=== PATIENT | female | born 1955 | race Caucasian/White ===

== ENCOUNTER 2017-06-15 15:21 | Emergency (ER) | payer MEDICARE, OTHER ==
[~2017-06-15] VITALS: Ht 167.6 cm; Wt 59.1 kg
[~2017-06-15 15:21] MED LIST: CARI350T29 PO; CLON1TAB3 PO; DIVA250T4 PO; DOCU100C PO; HYDR-762 PO; HYDR2TAB36 PO; LEVE500T11 PO; LYR75 PO; NIT4 SL; QUET200T PO; SIMV20TA2 PO; TIOT18CA IH; VALS160T20 PO
[2017-06-15 15:50] VITALS: Ht 167.6 cm; Wt 59.1 kg
--- NOTE | 2017-06-15 16:19 | ERD ---
ER Documentation Chief Complaint Date/Time DATE: 06/15/17 TIME: 16:15 Chief Complaint HPI Patient is a 61-year-old female who was found on the ground with contusion to her left forehead by her . She reports that she walks with a cane and has problems with equilibrium, and has had frequent falls. The patient also takes Viburnum and Soma for low back pain. She denies taking other medications or increased dosages today. Patient cannot recall her fall. She complains of right hip pain and head pain. Patient denies chest pain, shortness of breath, focal weakness or numbness. Last tetanus was less than 10 years ago. ROS All systems reviewed and are negative except as per history of present illness. Medications Home Meds Reported Medications Divalproex Sodium* (Divalproex ER*) 500 Mg Tab.er.24h, 500 MG PO BID, #60 TAB.SA 06/15/17 Carisoprodol* (Carisoprodol*) 350 Mg Tablet, 350 MG PO Q8 Y for MUSCLE SPASMS, TAB 06/15/17 Hydrocodone Bit-Acetaminophen* (Viburnum*) 10-325 Mg Tablet, 1 TAB PO BID Y for PAIN, TAB 05/17/16 Quetiapine Fumarate* (Seroquel*) 200 Mg Tablet, 200 MG PO HS, #30 TAB 05/17/16 Clonazepam* (Clonazepam*) 1 Mg Tablet, 1 MG PO BID Y for ANXIETY, TAB 05/17/16 Tiotropium [place]* (Spiriva*) 18 Mcg Cap.w.dev, 1 INH IH DAILY, EA 07/25/15 Levetiracetam* (Levetiracetam XR*) 500 Mg Tab.er.24h, 500 MG PO QID, TAB 05/24/14 Pregabalin* (Lyrica*) 75 Mg Capsule, 75 MG PO BID, CAP 05/24/14 Discontinued Reported Medications Hydromorphone Hcl* (Dilaudid*) 2 Mg Tablet, 2 MG PO Q8 Y for BREAKTHROUGH PAIN, TAB 05/17/16 Nitroglycerin* (Nitrostat*) 0.4 Mg Tab.subl, 0.4 MG SL Q5MIN Y for CHEST PAIN, BOTTLE 05/17/16 Carisoprodol* (Carisoprodol*) 350 Mg Tablet, 350 MG PO BID Y for MUSCLE SPASMS, TAB 05/17/16 Valsartan* (Diovan*) 160 Mg Tablet, 160 MG PO BID, TAB 05/17/16 Divalproex Sodium* (Depakote ER*) 250 Mg Tabsr, 500 MG PO BID, #30 TAB.SA 05/17/16 Simvastatin (Simvastatin) 20 Mg Tablet, 20 MG PO HS, TAB 05/24/14 Docusate Sodium (Doc-Q-Lace) 100 Mg Capsule, 200 MG PO DAILY 05/24/14 Allergies Allergies: Coded Allergies: Penicillins (Verified Allergy, Mild, 06/15/17) atenolol (Verified Allergy, Mild, HIVES, 06/15/17) iodine (Verified Allergy, Mild, SWELLING, 06/15/17) ketorolac (Verified Allergy, Mild, HIVES, 06/15/17) ketorolac tromethamine (Verified Allergy, Mild, CAN'T REMEMBER, 06/15/17) nalbuphine (Verified Allergy, Mild, 06/15/17) sumatriptan (Verified Allergy, Mild, SEIZURE, 06/15/17) sumatriptan succinate (Verified Allergy, Mild, 06/15/17) topiramate (Verified Allergy, Mild, 06/15/17) latex (Verified Allergy, Unknown, 06/15/17) Uncoded Allergies: PLASTIC TAPE (Allergy, Mild, 04/21/11) PMhx/Soc Past medical history: Disequilibrium, chronic back pain Past surgical history: Right shoulder, right hip Social history: Denies alcohol or illicit drugs. Smokes cigarettes. History of Surgery: Yes (HEART SHUNT 2006, RIGHT KNEE REPLACED, ABD SX, SKULL FX, SHOULDER FX, HYST) Anesthesia Reaction: Yes (PATIENT WOKE UP DURING SX) Hx Neurological Disorder: Yes (SEIZURES, MIGRAINES; LAST SEIZURE ONE WEEK AGO) Hx Respiratory Disorders: Yes (COPD ) Hx Cardiac Disorders: Yes (HEART SHUNT (2) 2006 R/T [place] 2006, MAJOR [place] AT 36 YEARS OLD) Hx Psychiatric Problems: Yes Hx Miscellaneous Medical Probl: Yes (Irritible bowel syndrome, right knee surgery, ulcers,acid reflux) Hx Alcohol Use: No (NOT SINCE SHE WAS 22) Hx Substance Use: No Hx Tobacco Use: Yes FmHx Family History: No coronary disease, No diabetes Physical Exam Vitals Vital Signs Date Time Temp Pulse Resp B/P Pulse Ox O2 Delivery O2 Flow Rate FiO2 06/15/17 18:56 63 18 149/72 100 Room Air 06/15/17 15:50 67 14 105/78 100 Physical Exam Const: Drowsy, arousable to gentle stimulation, no acute distress Head: Left frontal contusion with small abrasion Eyes: Normal Conjunctiva, no pallor, no icterus. 2 mm pupils bilaterally ENT: Normal External Ears, Nose and Mouth. Poor dentition Neck: Full range of motion. No midline tenderness Resp: Clear to auscultation bilaterally, no wheezes, no rales Cardio: Regular rate and rhythm, no murmurs Abd: Soft, non tender, non distended. No rebound or guarding Skin: No petechiae or rashes Back: No midline or flank tenderness Ext: No cyanosis, or edema, pain with ranging of right hip, no deformity to extremities. Neur: Awake and alert, cranial nerves II through XII intact bilaterally, strength and sensation full in 4 extremities Psych: Normal Mood and Affect Result Diagram: 06/15/17 1615 06/15/17 1615 Results 24 hrs Laboratory Tests Test 06/15/17 16:15 06/15/17 18:30 06/15/17 18:51 White Blood Count 3.510^3/ul Red Blood Count 4.0410^6/ul Hemoglobin 13.6g/dl Hematocrit 40.3% Mean Corpuscular Volume 99.8fl Mean Corpuscular Hemoglobin 33.7pg Mean Corpuscular Hemoglobin Concent 33.7g/dl Red Cell Distribution Width 12.7% Platelet Count 59513^3/UL Mean Platelet Volume 10.0fl Neutrophils % 22.0% Lymphocytes % 71.0% Monocytes % 7.0% Neutrophils # 0.810^3/ul Lymphocytes # 2.510^3/ul Monocytes # 0.210^3/ul Platelet Estimate PLT APPEAR ADEQUATE Prothrombin Time 12.3Sec Prothrombin Time Ratio 1.0 INR International Normalized Ratio 0.91 Sodium Level 143mmol/L Potassium Level 4.2mmol/L Chloride Level 102mmol/L Carbon Dioxide Level 29mmol/L Anion Gap 16 Blood Urea Nitrogen 12mg/dl Creatinine 0.69mg/dl Glucose Level 85mg/dl Calcium Level 9.9mg/dl Total Bilirubin 0.3mg/dl Direct Bilirubin 0.00mg/dl Indirect Bilirubin 0.3mg/dl Aspartate Amino Transf (AST/SGOT) 24IU/L Alanine Aminotransferase (ALT/SGPT) 20IU/L Alkaline Phosphatase 84IU/L Total Protein 6.5g/dl Albumin 3.7g/dl Globulin 2.80g/dl Albumin/Globulin Ratio 1.32 Urine Color YELLOW Urine Clarity CLEAR Urine pH 6.0 Urine Specific Bert[place] 1.019 Urine Ketones TRACEmg/dL Urine Nitrite NEGATIVEmg/dL Urine Bilirubin NEGATIVEmg/dL Urine Urobilinogen NEGATIVEmg/dL Urine Leukocyte Esterase 1+Maribel/ul Urine Microscopic RBC 2/HPF Urine Microscopic WBC 5/HPF Urine Bacteria FEW/HPF Urine Hemoglobin NEGATIVEmg/dL Urine Glucose NEGATIVEmg/dL Urine Total Protein NEGATIVEmg/dl Urine Opiates Screen Positive Urine Barbiturates Negative Urine Amphetamines Screen Negative Urine Benzodiazepines Screen Negative Urine Cocaine Screen Negative Urine Cannabinoids Positive Bedside Urine pH (LAB) 6.5 Bedside Urine Protein (LAB) Negative Bedside Urine Glucose (UA) Negative Bedside Urine Ketones (LAB) Trace Bedside Urine Blood Negative Bedside Urine Nitrite (LAB) Negative Bedside Urine Leukocyte Esterase (L Trace Procedures/MDM EKG read by me: Time 1618, rate 70 Rhythm: Normal sinus [place]: Normal Intervals: Normal ST-T waves: no ischemic changes Ectopy: No Q-waves: No Impression: No evidence of ischemia or arrhythmia MDM: Patient is a 61-year-old female who sustained a ground-level fall at home with trauma to forehead. She does not recall the event. She does report frequent falls due to disequilibrium that she has had for several months. CT of the head and C-spine was unremarkable. There is no other evidence of significant injury. The patient's tetanus is up-to-date. Labs, EKG, and UA are unremarkable. The patient does take narcotics and muscle relaxants, and on arrival in the ER she appeared overly sedated. She denied taking more medication than prescribed or more than she usually takes. She denied depression or suicidal ideation. During brief observation period in the ER, the patient became more alert and was at baseline according to her . The stated that he would help her ambulate at home and keep an eye on her, and that he would arrange for close follow-up with her PMD. There is no focal neurological deficit, and the patient has had similar episodes previously. Departure Diagnosis: Primary Impression: Fall Encounter type: initial encounter Qualified Code: W19.XXXA - Fall, initial encounter Additional Impressions: Scalp contusion Disequilibrium Condition: Stable BERNADETTE WESTBROOK MD Jun 15, 2017 16:18
[2017-06-15 16:23] LABS: ADD SCAN DIFF NO
[2017-06-15 16:26] LABS: ABNORMAL IP MESSAGE 1; HEMATOCRIT 40.3 % (37.0-47.0); HEMOGLOBIN 13.6 g/dl (12.0-16.0); MEAN CORPUSCULAR HEMOGLOBIN 33.7 pg (29.0-33.0); MEAN CORPUSCULAR HGB CONC 33.7 g/dl (32.0-37.0); MEAN CORPUSCULAR VOLUME 99.8 fl (82.0-101.0); PLATELET COUNT 184 10^3/UL (140-415); RED BLOOD COUNT 4.04 10^6/ul (4.20-5.40); RED CELL DISTRIBUTION WIDTH 12.7 % (11.5-14.5); WHITE BLOOD COUNT 3.5 10^3/ul (4.8-10.8)
[2017-06-15] MEDS ORDERED: CARI350T29 PO (16:37)
[2017-06-15] MEDS ORDERED: DIVA500T15 PO (16:39)
[2017-06-15 16:41] LABS: INR 0.91; PROTIME 12.3 Sec (12.2-14.2)
[2017-06-15 16:46] LABS: ALBUMIN 3.7 g/dl (3.3-4.9); ALBUMIN/GLOBULIN RATIO 1.32; BILIRUBIN,INDIRECT 0.3 mg/dl (0-1.1); BILIRUBIN,TOTAL 0.3 mg/dl (0.2-1.3); CALCIUM 9.9 mg/dl (8.4-10.2); CREATININE 0.69 mg/dl (0.44-1.00); POTASSIUM 4.2 mmol/L (3.5-5.1); TOTAL PROTEIN 6.5 g/dl (6.1-8.1)
--- NOTE | 2017-06-15 16:47 | RADRPT ---
PROCEDURE: CT brain without contrast CLINICAL INDICATION: Fall, head trauma/injury TECHNIQUE: CT of the brain without contrast performed on a multidetector CT scanner, with multiplan ar reformats. One or more of the following dose reduction techniques were used: Automated exposure control, adjustment in mA and / or kV according to patient size, use of iterative reconstructive albert hnique. CTDIvol = 44 mGy; DLP = 720 mGy-cm. COMPARISON: CT brain 05/17/2016 FINDINGS: No acute intracranial hemorrhage is identified. No extra-axial fluid collection is seen. There is no mass effect. No midline shift is identified. The ventricles and sulci are mild to moderately enlarged compatible with volume loss. There are mild areas of hypodensity in the periventricular - deep white matter which are nonspecific but suggestive of chronic small vessel ischemic changes. Raza-white differentiation is preserved. Atherosclerotic calcifications of the proximal intracranial arteries are noted. There is left frontal scalp swelling without underlying fracture identified. Calvarium and skull ba se appear intact. Mastoid air cells and imaged paranasal sinuses grossly clear. IMPRESSION: 1. Left frontal scalp swelling, without underlying fracture or evidence of acute intracranial patho logy. 2. Mild to moderate volume loss, with mild chronic small vessel ischemic changes. RPTAT: VV .Benito Cee MD, Date Time Electronically viewed and signed by .Benito Cee MD, MD on 06/15/2017 16:46 .O/
--- NOTE | 2017-06-15 17:22 | RADRPT ---
PROCEDURE: CT Cervical Spine. CLINICAL INDICATION: Neck pain status post fall TECHNIQUE: A CT of the cervical spine was performed on a multi-slice CT scanner utilizing high-res olution axial imaging from the skull base through the cervical thoracic junction. Sagittal, coronal , and multiplanar reformatted images were made. CTD I: 22.12 mGy and DLP: 429.73 mGy-cm One or more of the following dose reduction techniques were used: Automated exposure control. Adjustment of the mA and/or kV according to patient size. Use of iterative reconstruction technique. COMPARISON: None FINDINGS: There is normal cervical lordosis. There is mild dextrocurvature centered at C5 . No vertebral bod y subluxation is seen. No acute fractures are evident. The posterior elements are normally aligned . The surrounding soft tissues are normal in appearance. There are moderate osteoarthrosis of anter ior atlantoaxial joint. There are multiple small lucent lesions in the cervical spine measures up to 0.5 cm in the C4 vertebral body. C2-C3: The disk height is maintained. The central canal and bilateral neural foramina are adequate ly patent. C3-C4: The disk height is maintained. There is a small central disk protrusion and mild facet arth ropathy. The central canal and bilateral neural foramina are adequately patent. C4-C5: The disk height is maintained. There is a broad-based central disk protrusion and mild face t arthropathy. The central canal and bilateral neural foramina are adequately patent. C5-C6: There is mild disk height loss. Disk osteophyte complex, small nodules in moderate facet ar thropathy are seen at this level. The central canal and bilateral neural foramina are adequately pa tent. C6-C7: The disk height is maintained. There is mild facet arthropathy without associated central c anal or neural foraminal stenosis. C7-T1: Disk height is maintained. The central canal and bilateral neural foramina are adequately p atent. IMPRESSION: 1. No acute fracture or traumatic malalignment. 2. Mild cervical spondylosis more evident at C5-C6, as described above. 3. Indeterminate multiple scattered sub centimeter lucent lesions. Consider bone scan for further evaluation. RPTAT: HHO .Ander Del Rosario MD, MD Date Time Electronically viewed and signed by .Ander Del Rosario MD, MD on 06/15/2017 17:22 .O/
--- NOTE | 2017-06-15 17:39 | RADRPT ---
PROCEDURE: Right hip series CLINICAL INDICATION: Pain following trauma TECHNIQUE: AP and frog-leg lateral view COMPARISON: 05/17/2016 right hip series FINDINGS: No acute fractures or dislocations are noted. The patient is status post right total hip replacemen t since the prior examination with intact hardware. Mild generalized osteopenia is present. The so ft tissues are normal. IMPRESSION: 1. Interval status post right total hip replacement with intact hardware and gross anatomic alignme nt. 2. No acute fractures or dislocations. 3. Mild generalized osteopenia RPTAT: HDC .Keyonna Tillman MD, Date Time Electronically viewed and signed by .Keyonna Tillman MD, on 06/15/2017 17:39 .C/
[2017-06-15 17:54] LABS: LYMPHOCYTES # 2.5 10^3/ul (0.8-2.9); MONOCYTE # 0.2 10^3/ul (0.3-0.9); NEUTROPHIL # 0.8 10^3/ul (1.6-7.5)
[2017-06-15 17:55] LABS: PLATELET ESTIMATE PLT APPEAR ADEQUATE
[2017-06-15 18:47] LABS: URINE BLOOD (Dip) POC Negative (NEGATIVE)
[2017-06-15 18:56] VITALS: BP 149/72; PULSE 63; RESP 18
[2017-06-15 19:10] LABS: ADD UMIC YES; UR ASCORBIC ACID NEGATIVE (NEGATIVE); UR BACTERIA FEW /HPF (NONE SEEN); UR BILIRUBIN (Dip) NEGATIVE (NEGATIVE); UR BLOOD (Dip) NEGATIVE (NEGATIVE); UR CLARITY CLEAR (CLEAR); UR COLOR YELLOW (YELLOW); UR GLUCOSE (Dip) NEGATIVE (NEGATIVE); UR KETONES (Dip) TRACE mg/dL (NEGATIVE); UR LEUKOCYTE ESTERASE (Dip) 1+ Leu/ul (NEGATIVE); UR NITRITE (Dip) NEGATIVE (NEGATIVE); UR RBC 2 /HPF (0-5); UR SPECIFIC GRAVITY (Dip) 1.019 (1.003-1.030); UR TOTAL PROTEIN (Dip) NEGATIVE (NEGATIVE); UR UROBILINOGEN (Dip) NEGATIVE (NEGATIVE)
[2017-06-15 19:28] LABS: BARBITURATES Negative (NEGATIVE); BENZODIAZEPINES Negative (NEGATIVE)
[2017-06-15 19:30] LABS: CANNABINOIDS Positive (NEGATIVE); COCAINE Negative (NEGATIVE); OPIATES Positive (NEGATIVE)
== END 2017-06-15 19:45 | disposition home or self-care (01) ==
LOC: E/R 15:21
DX: S00.03XA Contusion of scalp, initial encounter (principal); R26.89 Other abnormalities of gait and mobility; J44.9 Chronic obstructive pulmonary disease, unspecified; R40.2142 Coma scale, eyes open, spontaneous, at arrival to emergency department; R40.2252 Coma scale, best verbal response, oriented, at arrival to emergency department; R40.2362 Coma scale, best motor response, obeys commands, at arrival to emergency department; W18.39XA Other fall on same level, initial encounter; Y92.9 Unspecified place or not applicable; Z91.040 Latex allergy status; Z96.651 Presence of right artificial knee joint; Z87.891 Personal history of nicotine dependence
CPT/HCPCS: 70450; 72125; 73510; 80053; 80307; 81003; 85025; 85610; 93005